=== PATIENT | female | born 1980 | race Caucasian/White ===

== ENCOUNTER 2017-04-28 15:27 | Emergency (ER) | payer OTHER ==
[~2017-04-28] VITALS: Ht 162.6 cm; Wt 58.1 kg
[~2017-04-28 15:27] MED LIST: SITA25TA3 PO
[2017-04-28 15:33] VITALS: BP 115/70
--- NOTE | 2017-04-28 16:40 | NUR ---
36/F BIB SELF C/O N/V, FEVER, CHILLS, HEADACHE 8/10 RADIATES TO NECK X3D. HX OF DM BUT PT DID NOT TAKE MED.AAOX4 WITH EVEN AND STEADY GAIT; LUNGS CLEAR BL; PATIENT STATES PAIN OF 0/10 AT THIS TIME; PATIENT POSITIONED FOR COMFORT; HOB ELEVATED; BEDRAILS UP X2; BED DOWN. ER MD MADE AWARE OF PT STATUS.
--- NOTE | 2017-04-28 16:43 | NUR ---
PT AMB TO BED 9
[2017-04-28] MEDS ORDERED: NACL 0.9% 1,000 ML IV SCH (16:54)
[2017-04-28] MEDS ORDERED: NACL 0.9% 1,000 ML IV ONE (16:55)
[2017-04-28] MEDS ORDERED: ONDANSETRON 4 MG/2 ML VIAL IVP ONE (16:55)
[2017-04-28 17:22] LABS: EOSINOPHILS % (AUTO) 0.2 % (0.0-4.0); HEMATOCRIT 31.1 % (36-48); HEMOGLOBIN 9.4 g/dL (12.0-16.0); LYMPHOCYTES % (AUTO) 21.5 % (20.5-51.1); MEAN CORPUSCULAR HEMOGLOBIN 20 pg (27-31); MEAN CORPUSCULAR HGB CONC 30 g/dL (33-37); MEAN CORPUSCULAR VOLUME 66 fL (80-94); MONOCYTES # (AUTO) 0.6 K/uL (0.8-1.0); MONOCYTES % (AUTO) 13.4 % (1.7-9.3); NEUTROPHILS # (AUTO) 2.9 K/uL (1.8-7.7); NEUTROPHILS % (AUTO) 63.9 % (42.2-75.2); PLATELET COUNT (AUTO) 202 K/uL (140-450); RED BLOOD CELL COUNT(AUTO) 4.71 MIL/uL (4.20-5.40); RED CELL DISTRIBUTION WIDTH 15.9 % (11.6-13.7); WHITE BLOOD COUNT (AUTO) 4.5 K/uL (4.8-10.8)
--- NOTE | 2017-04-28 17:25 | NUR ---
X RAY AT BEDSIDE.
[2017-04-28 17:40] LABS: PROTHROMBIN TIME 10.3 secs (10.8-13.4)
[2017-04-28 17:48] LABS: ALBUMIN 3.2 g/dL (3.4-5.0); ANION GAP 10.5 (8-16); CREATININE 0.6 mg/dL (0.6-1.3); POTASSIUM 3.5 mmol/L (3.5-5.1); TOTAL BILIRUBIN 0.3 mg/dL (0.0-1.0)
[2017-04-28] MEDS ORDERED: INSULIN HUMAN REGULAR 100 UNITS/ML 10 ML VIAL IVP ONE (18:00)
[2017-04-28] MEDS ORDERED: ACETAMINOPHEN 325 MG TAB PO ONE (18:10)
[2017-04-28 18:16] LABS: APPEARANCE,URINE CLEAR (CLEAR); BILIRUBIN,URINE NEGATIVE (NEGATIVE); BLOOD, URINE NEGATIVE (NEGATIVE); LEUKOCYTE ESTERASE ,URINE NEGATIVE (NEGATIVE); NITRITE, URINE NEGATIVE (NEGATIVE); UGLUCOSE 3+ (NEGATIVE)
[2017-04-28 18:18] LABS: COLOR,URINE STRAW (YELLOW)
--- NOTE | 2017-04-28 18:21 | NUR ---
Patient appears to be resting comfortably in bed. T100; GAVE TYLENOL ORDER. HEADACHE 11/20. WILL CONTINUE TO MONITOR.
--- NOTE | 2017-04-28 18:50 | NUR ---
Patient being reevaluated by DR LYMAN at bedside
[2017-04-28 18:55] VITALS: BP 128/89
--- NOTE | 2017-04-28 18:56 | NUR ---
Patient discharged with t100.2, bp ,128/89; headache 5/10; md made aware.. Written and verbal after care instructions given and explained. Patient alert, oriented and verbalized understanding of instructions. Ambulatory with steady gait. All questions addressed prior to discharge. ID band removed. Patient advised to follow up with PMD. Rx of norco, januvia & zofran given. Patient educated on indication of medication including possible reaction and side effects. Opportunity to ask questions provided and answered.
== END 2017-04-28 18:56 | disposition home or self-care (01) ==
LOC: MED 15:27
DX: E11.9 Type 2 diabetes mellitus without complications (principal); D72.818 Other decreased white blood cell count; D64.9 Anemia, unspecified; E87.1 Hypo-osmolality and hyponatremia; Z79.899 Other long term (current) drug therapy; Z90.49 Acquired absence of other specified parts of digestive tract
CPT/HCPCS: 36415; 36600; 71010; 80053; 81003; 82803; 82948; 83605; 83880; 84484; 85025; 85610; 85730; 87040; 87086; 93005; 96361; 96374; 96375; 99285; J1815; J2405; J7030; Q0092

== ENCOUNTER 2021-03-01 14:32 | Emergency (ER) | payer OTHER ==
[~2021-03-01] VITALS: Ht 167.6 cm; Wt 61.2 kg
[2021-03-01 14:50] VITALS: BP 129/75
--- NOTE | 2021-03-01 15:04 | NUR ---
Ami cotto in [facility] - 03/01/21 at 1507 by MARILYN Pt wheelchair assisted to bed 03.
--- NOTE | 2021-03-01 15:05 | NUR ---
Pt w/c assisted to bed 3.
--- NOTE | 2021-03-01 15:10 | NUR ---
Patient ambulated to restroom with steady/even gait.
--- NOTE | 2021-03-01 15:20 | NUR ---
40 y/o F BIB self from home with c/c N/V/D, abdominal pain since 0200 today. Patient A&Ox4, wheelchair assisted, states acute onset of N/V/D, reports 8 episodes vomiting and 10 episodes diarrhea. Patient reports 10/ LLQ, sharp/intermittent, radiating to low back. Patient reports seen at [facility] yesterday and discharged with [place] and Gabapentin, compliant with medications and without relief to pain. Patient denies hemaemesis, hematuria, dysuria, chest pain, headache, fever, chills, constipation. 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 Pt placed into gown and cardiac technician. Bed locked in lowest position, side rails x 1. Last BM: today, diarrhea "watery." AccuChek 409. PMH: DM Meds: Insulin NKA
--- NOTE | 2021-03-01 15:25 | NUR ---
Dr. Ruth is evaluating patient at bedside.
[2021-03-01] MEDS ORDERED: MORPHINE SULFATE 4 MG/ML SYR IVP ONE (15:40)
[2021-03-01] MEDS ORDERED: NACL 0.9% 1,000 ML IV ONE ×2 (15:40→17:00)
[2021-03-01] MEDS ORDERED: ONDANSETRON 4 MG/2 ML VIAL IVP ONE (15:40)
--- NOTE | 2021-03-01 15:50 | NUR ---
Lab at bedside for blood draw
--- NOTE | 2021-03-01 15:50 | NUR ---
JEFF handed to CPT Yeny at ER bedside.
--- NOTE | 2021-03-01 15:58 | NUR ---
MANAGER MANAGEMENT at bedside for blood draw
--- NOTE | 2021-03-01 16:00 | NUR ---
Patient states positive relief to pain; rates 7/10. Minor relief to nausea.
[2021-03-01 16:17] LABS: BASOPHILS % (AUTO) 0.4 % (0.0-2.0); EOSINOPHILS # (AUTO) 0.1 K/uL (0-0.4); EOSINOPHILS % (AUTO) 0.9 % (0.0-4.0); HEMATOCRIT 33.4 % (36-48); HEMOGLOBIN 10.8 g/dL (12.0-16.0); LYMPHOCYTES # (AUTO) 1.6 K/uL (2.5-16.5); LYMPHOCYTES % (AUTO) 27.1 % (20.5-51.1); MEAN CORPUSCULAR HEMOGLOBIN 24 pg (27-31); MEAN CORPUSCULAR HGB CONC 32 g/dL (33-37); MEAN CORPUSCULAR VOLUME 75.6 fL (80-94); MONOCYTES # (AUTO) 0.4 K/uL (0.8-1.0); MONOCYTES % (AUTO) 7.5 % (1.7-9.3); NEUTROPHILS # (AUTO) 3.8 K/uL (1.8-7.7); NEUTROPHILS % (AUTO) 64.1 % (42.2-75.2); PLATELET COUNT (AUTO) 360 K/uL (140-450); RED BLOOD CELL COUNT(AUTO) 4.41 MIL/uL (4.20-5.40); RED CELL DISTRIBUTION WIDTH 16.3 % (11.6-13.7); WHITE BLOOD COUNT (AUTO) 5.9 K/uL (4.8-10.8)
[2021-03-01 16:21] LABS: APPEARANCE,URINE CLEAR (CLEAR); BILIRUBIN,URINE NEGATIVE (NEGATIVE); BLOOD, URINE TRACE-I (NEGATIVE); COLOR,URINE YELLOW (YELLOW); LEUKOCYTE ESTERASE ,URINE NEGATIVE (NEGATIVE); NITRITE, URINE NEGATIVE (NEGATIVE); PH,URINE 7.5 (5.0-9.0); UGLUCOSE 3+ (NEGATIVE)
[2021-03-01 16:27] LABS: ACETONE, SERUM NEGATIVE (NEGATIVE); ALBUMIN 3.2 g/dL (3.4-5.0); ANION GAP 12.2 (8-16); ASPARTATE AMINOTRANSFERASE 18 U/L (15-37); CARBON DIOXIDE 28.6 mmol/L (21-32); CHLORIDE 98 mmol/L (98-107); CREATININE 0.7 mg/dL (0.6-1.3); GFR ARICAN-AMERICAN 119 mL/min (>90); LIPASE 81 U/L (73-393); POTASSIUM 3.8 mmol/L (3.5-5.1); SODIUM SERUM 135 mmol/L (136-145); TOTAL BILIRUBIN 0.2 mg/dL (0.0-1.0); UREA NITROGEN, BLOOD 11 mg/dL (7-18)
[2021-03-01 16:28] LABS: GLUCOSE 403 mg/dL (74-106)
--- NOTE | 2021-03-01 17:30 | NUR ---
Patient resting in position of comfort. NAD. pigment pumper in place. Bed locked in lowest position, side rails x 1, call light in reach. IVF continued.
[2021-03-01 17:38] VITALS: BP 159/87
[2021-03-01] MEDS ORDERED: BEN10 PO (18:09)
--- NOTE | 2021-03-01 18:15 | NUR ---
Patient discharged with v/s stable. Written and verbal after care instructions given and explained. Patient alert, oriented and verbalized understanding of instructions. Ambulatory with steady gait. All questions addressed prior to discharge. ID band removed. Patient advised to follow up with PMD. Rx of Bentyl given. Patient educated on indication of medication including possible reaction and side effects. Opportunity to ask questions provided and answered.
== END 2021-03-01 18:15 | disposition home or self-care (01) ==
LOC: MED 14:32
DX: R10.84 Generalized abdominal pain (principal); R11.2 Nausea with vomiting, unspecified; R19.7 Diarrhea, unspecified; E11.9 Type 2 diabetes mellitus without complications; Z98.890 Other specified postprocedural states; Z79.899 Other long term (current) drug therapy
CPT/HCPCS: 36415; 80053; 81003; 82009; 83690; 85025; 96361; 96374; 96375; 99284; J2270; J2405; J7030